=== PATIENT | male | born 1980 | race African-American/Black ===

== ENCOUNTER 2018-07-26 16:52 | Emergency (ER) | payer SELFPAY ==
[2018-07-26 17:13] VITALS: TEMP 98.3; BMI 27.0
--- NOTE | 2018-07-26 17:26 | PDOC ---
Attending Attestation - [facility] HPI: 07/26/18 19:06 The patient is a 38 year old male with a past medical history of anxiety here today for evaluation of headaches. The patient reports that his headaches began 3 weeks ago and describes them as bilateral pressures. He notes that his headaches have been constant, moderate in strength, and worse with light and loud noises. Patient denies blurry vision, lightheadedness. Denies fever, chills. Denies chest pain, shortness of breath. Denies nausea, vomiting, diarrhea, abdominal pain. Denies lower extremity edema. Denies urinary symptoms. Denies neurologic symptoms. Denies travel or suspicious food intake. Allergies: NKA Social history: Denies tobacco, drug, and alcohol use. PCP: none - Physicial Exam PE: 07/26/18 20:03 GENERAL: Awake, alert, and fully oriented, in no acute distress NEUROLOGICAL: Cranial nerves II through XII grossly intact. Normal speech, normal gait. Motor and sensory grossly intact. <Kael Bryant - Last Filed: 07/26/18 20:02> - Medical Decision Making 07/27/18 01:55 Pt presents to the Ed complaining of three weeks of daily headache. Very low concern for subarachnoid, but given the persistence of his pain, will check Ct to rule out mass. CT is negative. pain improved. Will discharge home with follow iup. <Mony Santiago - Last Filed: 07/27/18 01:56>
[2018-07-26] MEDS ORDERED: IBUPROFEN 600 MG TABLET (FP) PO ONE (17:45)
--- NOTE | 2018-07-26 17:45 | PDOC ---
History of Present Illness - General Chief Complaint: Headache Stated Complaint: HEADACHES Time Seen by Provider: 07/26/18 17:23 History Source: Patient Exam Limitations: No Limitations - History of Present Illness Initial Comments: 38 yo M w a pmh of anxiety presents to the ED with 3 weeks of bilateral pressure like headaches. He states that he is very stressed at work and things have been difficult. He reports the headache has been constant and nagging. It is not the worst headache of his life. It was not maximal at onset. He denies any neck pain, blurry vision, floaters, or recent fevers. The headaches are not worse in the morning. PCP: None Social Hx: Denies smoking, drinking, or illicit drug usage Allergies: NKA, NKDA Past History - Past Medical History Allergies/Adverse Reactions: Allergies Allergy/AdvReac Type Severity Reaction Status Date / Time No Known Allergies Allergy Verified 07/26/18 17:08 Home Medications: Ambulatory Orders NK [No Known Home Medication] 07/26/18 COPD: No - Suicide/Smoking/Psychosocial Hx Smoking History: Former smoker Have you smoked in the past 12 months: No Information on smoking cessation initiated: No Review of Systems - Review of Systems Comments:: CONSTITUTIONAL: Absent: fever, no chills, no fatigue EYES: Absent: visual changes ENT: Absent: ear pain, no sore throat CARDIOVASCULAR: Absent: chest pain, no palpitations RESPIRATORY: Absent: cough, no SOB GI: Absent: abdominal pain, no nausea, no vomiting, no constipation, no diarrhea GENITOURINARY: Absent: dysuria, no frequency, no hematuria MUSKULOSKELETAL: Absent: back pain, no arthralgia, no myalgia SKIN: Absent: rash NEURO: Present: headache *Physical Exam - Vital Signs Last Vital Signs Temp Pulse Resp BP Pulse Ox 98.3 F 90 18 127/87 98 07/26/18 17:05 07/26/18 17:05 07/26/18 17:05 07/26/18 17:05 07/26/18 17:05 - Physical Exam Comments: GENERAL: Well-appearing, well-nourished. No apparent distress. HEENT: Normocephalic, atraumatic. PERRL, EOM intact. CARDIOVASCULAR: Normal S1, S2. Regular rate and rhythm. PULMONARY: Clear to auscultation bilaterally. ABDOMEN: Soft, non-distended, non-tender. EXTREMITIES: Normal ROM in all four extremities. No gross deformities. SKIN: Warm, dry. No rash NEUROLOGICAL: No focal neurological deficits. Moderate Sedation - Procedure Monitoring Vital Signs: Procedure Monitoring Vital Signs Temperature 98.3 F 07/26/18 17:05 Pulse Rate 90 07/26/18 17:05 Respiratory Rate 18 07/26/18 17:05 Blood Pressure 127/87 07/26/18 17:05 O2 Sat by Pulse Oximetry (%) 98 07/26/18 17:05 Medical Decision Making - Medical Decision Making 38 yo M w a pmh of anxiety presents to the ED with 3 weeks of bilateral pressure like headaches. DDx IBNLT: tension vs cluster vs migraine headaches, cva/tia, brain bleed, brain mass Plan: head ct, IV hydration, analgesia, re-assess. Head CT showed no pathology. Patient did not experience headache relief after 800 of iburofen I placed a 20 gauge IV in the Right AC. Giving patient IV hydration will give reglan and benadryl then DC with pcp and neuro FU Patient feels better after IV meds and hydration. *DC/Admit/Observation/Transfer Diagnosis at time of Disposition: Headache - Discharge Dispostion Disposition: HOME Condition at time of disposition: Improved Decision to Admit order: No - Referrals Referrals: [facility] [place] [facility] [place] [Provider Group] Eris Avila MD [Staff Physician] - - Patient Instructions Printed Discharge Instructions: DI for Headache Additional Instructions: You came into the ER with a headache. We did a cat scan which showed you do not have a brain bleed or a tumor. We gave you some medications which made you feel better. Please make sure to schedule a follow up appointment with both a neurologist and a primary care doctor in the next 3 to 5 days to help address your headache and make sure you are getting better. Come back to the ER immediately if your headache worsens, if you experience nausea, vomiting, or any other new or worsening concerns. Thank you for coming to the [facility] ER. We hope you feel better soon! Print Language: HUNGARIAN - Post Discharge Activity
[2018-07-26] MEDS ORDERED: IBUPROFEN 400 MG TABLET (FP) PO ONE (17:58)
[2018-07-26] MEDS ORDERED: METOCLOPRAMIDE HCL INJECTION 10 MG/2 ML VIAL IVPUSH ONE (18:44)
[2018-07-26] MEDS ORDERED: SODIUM CHLORIDE 0.9% 500 ML INFUS.BAG IV ONE (18:44)
[2018-07-26 19:47] VITALS: BP 117/70; PULSE 67
[2018-07-26] MEDS ORDERED: METOCLOPRAMIDE HCL INJECTION 10 MG/2 ML VIAL ONE (19:54)
--- NOTE | 2018-07-26 20:19 | PDOC ---
*Physical Exam - Vital Signs Last Vital Signs Temp Pulse Resp BP Pulse Ox 98.3 F 67 20 117/70 98 07/26/18 19:46 07/26/18 19:46 07/26/18 19:10 07/26/18 19:46 07/26/18 19:46 ED Treatment Course - RADIOLOGY Radiology Studies Ordered: Category Date Time Status HEAD CT WITHOUT CONTRAST [CT] Stat CT Scan 07/26/18 18:35 Taken - Medications Given in the ED: ED Medications Discontinued Medications Generic Name Dose Route Start Last Admin Trade Name Stephania PRN Reason Stop Dose Admin Diphenhydramine HCl 25 mg 07/26/18 18:44 07/26/18 20:00 Benadryl Injection - IVPUSH 07/26/18 18:45 25 mg ONCE ONE Administration Ibuprofen 800 mg 07/26/18 17:45 07/26/18 18:03 Motrin - PO 07/26/18 17:46 800 mg ONCE ONE Administration Metoclopramide HCl 10 mg 07/26/18 18:44 07/26/18 20:01 Reglan Injection - IVPUSH 07/26/18 18:45 10 mg ONCE ONE Administration Sodium Chloride 1,000 ml 07/26/18 18:44 07/26/18 20:00 Normal Saline - IV 07/26/18 18:45 1,000 ml ONCE ONE Administration *DC/Admit/Observation/Transfer Diagnosis at time of Disposition: Headache - Discharge Dispostion Disposition: HOME Condition at time of disposition: Improved - Referrals Referrals: [facility] [place] Internal [facility] at [place] [Provider Group] Eris Avila MD [Staff Physician] - - Patient Instructions Printed Discharge Instructions: DI for Headache Additional Instructions: You came into the ER with a headache. We did a cat scan which showed you do not have a brain bleed or a tumor. We gave you some medications which made you feel better. Please make sure to schedule a follow up appointment with both a neurologist and a primary care doctor in the next 3 to 5 days to help address your headache and make sure you are getting better. Come back to the ER immediately if your headache worsens, if you experience nausea, vomiting, or any other new or worsening concerns. Thank you for coming to the [facility] ER. We hope you feel better soon! Print Language: UKRAINIAN - Post Discharge Activity Forms/Work/School Notes: Back to Work
== END 2018-07-26 20:43 | disposition home or self-care (01) ==
LOC: JER 16:52
CPT/HCPCS: 70450-TC; 99283-25

== ENCOUNTER 2019-03-25 14:06 | Emergency (ER) | payer BC, OTHER ==
[2019-03-25 14:18] VITALS: BP 118/67; PULSE 68; TEMP 98.2; BMI 31.6
--- NOTE | 2019-03-25 14:18 | PDOC ---
Rapid Medical Evaluation Chief Complaint: Pain Time Seen by Provider: 03/25/19 14:16 Medical Evaluation: Allergies Allergy/AdvReac Type Severity Reaction Status Date / Time No Known Allergies Allergy Verified 07/26/18 17:08 03/25/19 14:17 I have performed a brief in-person evaluation of this patient. The patient presents with a chief complaint of: right side testicular pain x 4 days. Denies urinary symptoms. saw PCP yesterday who referred her for U/S but came here instead Pertinent physical exam findings: A&O x 3 in NAD I have ordered the following: testicular U/S The patient will proceed to the ED for further evaluation. Discharge Disposition - Diagnosis Testicle pain - Discharge Dispostion Condition at time of disposition: Stable - Referrals - Patient Instructions - Post Discharge Activity
[2019-03-25 16:45] LABS: EPI CELLS 0.8 /HPF (0-5/HPF); HYALINE CASTS 1 /lpf (0-8); URINE APPEARANCE CLEAR; URINE BACTERIA 11.7 /hpf (NEGATIVE); URINE BILIRUBIN NEGATIVE (NEGATIVE); URINE COLOR YELLOW; URINE GLUCOSE (UA) NEGATIVE (NEGATIVE); URINE KETONE NEGATIVE (NEGATIVE); URINE LEUK ESTERASE TRACE (NEGATIVE); URINE NITRITE NEGATIVE (NEGATIVE); URINE PROTEIN NEGATIVE (NEGATIVE); URINE RBC 1 /hpf (0-4); URINE UROBILINOGEN 0.2 mg/dL (0.2-1.0); URINE WBC 3 /hpf (0-5)
--- NOTE | 2019-03-25 16:56 | PDOC ---
History of Present Illness - General Chief Complaint: Pain Stated Complaint: Testicular pain for 3 days Time Seen by Provider: 03/25/19 14:16 History Source: Patient Exam Limitations: No Limitations - History of Present Illness Initial Comments: HPI: 38 y/o male presenting to [facility] ED complaining of right testicular pain worsening for the past four days. Described as sharp in nature. Noticed sensation of tender fluid collection in the top of right testicle. Worse during intercourse without change during ejacualtion. Endorses occasional hematuria without dysuria or increased urinary frequency. Denies fevers, chills, or recent unintentional weight loss. No h/o of similar symptoms. Was evaluated by PCP EDDI Delong in clinic today. Blood and urine tests were obtained but have not resulted. Was encouraged to present to the ED for a scrotal ultrasound. Sexual Hx: - Three partners in last six months - No h/o of STD - No known exposure to STD - Last HIV test 4 months ago was negative. Repeated today in clinic. Social Hx: - Works for [employer]. Frequently lifting heavy boxes. Medical Hx: - Anxiety, managed with Buspirone Review of Systems: In addition to that documented in the HPI above, the additional ROS was obtained : Constitutional: Denies fevers or chills Head: Denies vision changes ENMT: Denies sore throat CV: Denies chest pain Resp: Denies SOB GI: Denies vomiting or diarrhea : Denies painful urination MSK: Denies recent trauma Skin: Denies new rashes Neuro: Denies new numbness or tingling or weakness Endocrine: Denies polyuria Heme: Denies bruising Physical Examination: Constitutional: Well-developed, well-nourished adult male in no acute distress or obvious discomfort. Found sitting in hospital chair. Alert and oriented x4. Answered all questions appropriately and completely. Speech was non-labored, non -pressured. Observed walking through the department unassisted without difficulty. Head: Normocephalic. No obvious external signs of trauma. Cardiovascular / Chest: Regular rate and regular rhythm. No murmur, rubs, clicks , or gallops. Peripheral pulses: radial pulses full. Respiratory: Breathing unlabored. Equal chest rise and fall. Clear to auscultation bilaterally. No stridor, no wheezing, no rhonchi. Gastrointestinal: abdomen is soft, non-tender, non-distended. Neuro: Alert and oriented. Moving all four extremities spontaneously. Gait normal. Skin: Warm, dry, and intact. : No R or L CVA tenderness. Psych: Affect: appropriate. Mood: normal. Male : Genital exam revealed normally developed male genitalia. Circumcised penis. Normal testicular lie. Superior portion of R testicle tender with possible fluid collection versus mass. No hernias or inguinal lymphadenopathy. No perineal or perianal abnormalities are seen. No genital lesions or urethral discharge. RN chaperoned exam. MDM: *Reviewed vital signs, nursing notes, and prior visit documentation (if available). 38 y/o male presenting w/ four days of worsening right testicle pain. No infectious symptoms. Afebrile. Vitals unremarkable for hypotension or tachycardia. Physical exam as described above. Low suspicion for hernia. UA unremarkable for pyuria or nitrites. Low suspicion for acute cystitis versus epididymitis. Urine culture pending. GC and Chlamydia amp pending. U/S revealed bilateral hydrocele with cysts. Suspect likely source of pain. Will provide outpatient urology follow up. Discussed imaging and laboratory results with pt. Answered all questions. Provided return precautions. Pt expressed verbal understanding and agreement with plan to discharge home with outpatient follow up. Provided copy of todays results. Moe Keith M.D., PGY2 Emergency Medicine Resident Past History - Past Medical History Allergies/Adverse Reactions: Allergies Allergy/AdvReac Type Severity Reaction Status Date / Time No Known Allergies Allergy Verified 03/25/19 14:18 Home Medications: Ambulatory Orders NK [No Known Home Medication] 07/26/18 COPD: No - Suicide/Smoking/Psychosocial Hx Smoking History: Never smoked Have you smoked in the past 12 months: No Information on smoking cessation initiated: No Hx Alcohol Use: No Drug/Substance Use Hx: No *Physical Exam - Vital Signs Last Vital Signs Temp Pulse Resp BP Pulse Ox 98.2 F 68 18 118/67 100 03/25/19 14:16 03/25/19 14:16 03/25/19 14:16 03/25/19 14:16 03/25/19 14:16 ED Treatment Course - ADDITIONAL ORDERS Additional order review: Laboratory Results 03/25/19 16:24 Urine Color Yellow Urine Appearance Clear Urine pH 7.0 Ur Specific [place] 1.023 Urine Protein Negative Urine Glucose (UA) Negative Urine Ketones Negative Urine Blood Negative Urine Nitrite Negative Urine Bilirubin Negative Urine Urobilinogen 0.2 Ur Leukocyte Esterase Trace Urine WBC (Auto) 3 Urine RBC (Auto) 1 Urine Casts (Auto) 1 U Epithel Cells (Auto) 0.8 Urine Bacteria (Auto) 11.7 *DC/Admit/Observation/Transfer Diagnosis at time of Disposition: Testicle pain - Discharge Dispostion Condition at time of disposition: Good Decision to Admit order: No - Referrals Referrals: Gema Delong MD [Primary Care Provider] - Sachin Pelaez MD [Staff Physician] - - Patient Instructions Printed Discharge Instructions: DI for Hydrocele-Adult Additional Instructions: You were seen today for right testicle pain. Your initial urine test was normal. The second part will take several days to complete. The hospital will call you if the result is positive. Your pain is likely from a hydrocele, which is a collection of fluid around the testicle. This was shown on your ultrasound. Follow up with a urologist within the next week. I have placed a consult for Dr. Pelaez. You will need to call to make an appointment. The number is included in this packet. A copy of todays results are attached to this packet. Take it to the appointment so your doctor can review them. You can take over the counter Tylenol or Advil as needed for pain. Take as directed on the package insert. Do not exceed the recommended dosage. Go to the nearest emergency department if your condition worsens or you feel like you need additional emergency evaluation. Print Language: ESTONIAN - Post Discharge Activity Forms/Work/School Notes: Back to Work
--- NOTE | 2019-03-25 17:26 | PDOC ---
Documentation entered by Kael Bryant SCRIBE, acting as scribe for Fortino Preciado MD. Fortino Preciado MD: This documentation has been prepared by the anupamaeManny Daniel, SCRIBE, under my direction and personally reviewed by me in its entirety. I confirm that the documentation accurately reflects all work, treatment, procedures, and medical decision making performed by me. Attending Attestation - Resident Resident Name: BishopMoe - [facility] HPI: 03/25/19 16:45 The patient is a 38 year old male with no past medical history here today for evaluation of right testicular pain. The patient reports that he has had 4 days of sharp right testicular pain and notes a bump on his testicular sac. He also notes 3 partners in the past 6 months. Allergies: NKA PCP: Gema Delong - Physicial Exam PE: 03/25/19 17:19 Patient is awake and alert, well-nourished, in no distress Normocephalic and atraumatic CTA RRR Abdomen soft, nontender, nondistended, no palpable hernias No penile lesions, mild tenderness to palpation along the superior/posterior aspect of the right testicle. Both testicles are normal lie. - Medical Decision Making 03/25/19 17:22 pt is a 38 y/o male who presents with atrauamtic right testicular pain for 4 days. pt is afebrile, with both testicles are in nl lie. will obtain ua, Scrotal US, will reascess.
== END 2019-03-25 18:55 | disposition home or self-care (01) ==
LOC: JER 14:06
DX: N50.811 Right testicular pain (principal)
CPT/HCPCS: 36415; 76870-TC; 81003; 87086; 87491; 87591; 99282-25